=== PATIENT | male | born 1995 | race Asian ===

== ENCOUNTER 2021-04-15 21:51 | Emergency (ER) | payer OTHER, SELFPAY ==
[~2021-04-15] VITALS: Ht 180.3 cm; Wt 84.8 kg
[~2021-04-15 21:51] MED LIST: NITR100C7 PO
[2021-04-15 22:10] VITALS: BP 138/101
--- NOTE | 2021-04-15 22:13 | NUR ---
PATIENT AMBUALTED TO BATHROOM TO PROVIDE UA SAMPLE.
--- NOTE | 2021-04-15 22:14 | NUR ---
PATIENT AMBULATED TO LOBBY WITH STEADY GAIT TO AWAIT FOR CALL BACK.
[2021-04-15 22:29] LABS: APPEARANCE,URINE CLEAR (CLEAR); BILIRUBIN,URINE NEGATIVE (NEGATIVE); BLOOD, URINE 3+ (NEGATIVE); COLOR,URINE YELLOW (YELLOW); LEUKOCYTE ESTERASE ,URINE NEGATIVE (NEGATIVE); NITRITE, URINE NEGATIVE (NEGATIVE); PH,URINE 5.5 (5.0-9.0); UGLUCOSE NEGATIVE (NEGATIVE)
--- NOTE | 2021-04-15 22:33 | NUR ---
AMBULTED TO ER BED 11
--- NOTE | 2021-04-15 22:41 | NUR ---
26 Y/O MALE CAME TO THE ED FOR LLQ ABDOMINAL PAIN. PT STATES 10/10 SHARP PAIN IN THE LLQ ABDOMEN THAT RADIATES TO LEFT LOWER BACK. DENIES N/V/D; SKIN IS PINK/WARM/DRY; AAOX4 WITH EVEN AND STEADY GAIT; LUNGS CLEAR BL; HR EVEN AND REGULAR; PT DENIES ANY FEVER, CP, SOB, OR COUGH AT THIS TIME; VSS; PATIENT POSITIONED FOR COMFORT; HOB ELEVATED; BEDRAILS UP X2; BED DOWN. ER MD MADE AWARE OF PT STATUS. NKA PMH: KIDNEY STONES
[2021-04-15] MEDS ORDERED: KETOROLAC 15 MG/ML VIAL IVP ONE (22:50)
[2021-04-15] MEDS ORDERED: ONDANSETRON 4 MG/2 ML VIAL IVP ONE (22:50)
[2021-04-15] MEDS ORDERED: TAMSULOSIN 0.4 MG CAP PO SCH (22:55)
[2021-04-15 23:27] LABS: BASOPHILS # (AUTO) 0.1 K/uL (0.00-0.22); BASOPHILS % (AUTO) 0.7 % (0.0-2.0); EOSINOPHILS # (AUTO) 0.3 K/uL (0-0.4); EOSINOPHILS % (AUTO) 2.3 % (0.0-4.0); HEMATOCRIT 42.8 % (36-52); HEMOGLOBIN 14.1 g/dL (12.0-18.0); LYMPHOCYTES # (AUTO) 1.6 K/uL (2.0-11.5); MEAN CORPUSCULAR HEMOGLOBIN 28 pg (27-31); MEAN CORPUSCULAR HGB CONC 33 g/dL (33-37); MEAN CORPUSCULAR VOLUME 85.4 fL (80-94); MONOCYTES # (AUTO) 1.4 K/uL (0.8-1.0); NEUTROPHILS # (AUTO) 10.2 K/uL (1.8-7.7); PLATELET COUNT (AUTO) 324 K/uL (140-450); RED BLOOD CELL COUNT(AUTO) 5.01 MIL/uL (4.20-6.10); RED CELL DISTRIBUTION WIDTH 13.5 % (11.6-13.7); WHITE BLOOD COUNT (AUTO) 13.6 K/uL (4.8-10.8)
[2021-04-15] MEDS: NACL 0.9% 1,000 ML IV SCH (23:34)
[2021-04-15 23:41] LABS: RBC,URINE 11-20 (MOD) /HPF (0-5); WBC,URINE 0-5 /HPF (0-5)
--- NOTE | 2021-04-15 23:41 | NUR ---
US AT BEDSIDE.
[2021-04-15 23:58] LABS: ALBUMIN 4.5 g/dL (3.4-5.0); ANION GAP 14.2 (8-16); CARBON DIOXIDE 25.3 mmol/L (21-32); CREATININE 1.5 mg/dL (0.6-1.3); POTASSIUM 3.5 mmol/L (3.5-5.1); TOTAL BILIRUBIN 0.7 mg/dL (0.0-1.0)
[2021-04-16] MEDS ORDERED: HYDROcodone/APAP 10/325 MG 1 TAB TAB PO ONE (01:00)
[2021-04-16] MEDS: NACL 0.9% 1,000 ML IV SCH (01:09)
[2021-04-16] MEDS ORDERED: HYDROcodone/APAP 10/325 MG 1 TAB TAB PO SCH (01:10)
[2021-04-16] MEDS ORDERED: IBUP-2213 PO (01:12)
[2021-04-16] MEDS ORDERED: ONDA-24 PO (01:12)
[2021-04-16] MEDS ORDERED: ACET-8386 PO (01:12)
[2021-04-16] MEDS ORDERED: TAMS0.4C96 PO (01:12)
--- NOTE | 2021-04-16 01:40 | NUR ---
IV removed, catheter intact and site benign. Applied folded 4x4 gauze and tape to stop bleeding.
[2021-04-16 01:45] VITALS: BP 142/80
--- NOTE | 2021-04-16 01:45 | NUR ---
Patient discharged with v/s stable. Written and verbal after care instructions given and explained. Patient alert, oriented and verbalized understanding of instructions. Ambulatory with steady gait. All questions addressed prior to discharge. ID band removed. Patient advised to follow up with PMD. Rx of HYDROCODONE/ACETOMINAPHEN, IBUPROFEN, ZOFRAN, FLOMAX given. Patient educated on indication of medication including possible reaction and side effects. Opportunity to ask questions provided and answered.
== END 2021-04-16 01:45 | disposition home or self-care (01) ==
LOC: MED 21:51
DX: N20.0 Calculus of kidney (principal); R11.2 Nausea with vomiting, unspecified; Z87.442 Personal history of urinary calculi
CPT/HCPCS: 36415; 76770; 80053; 81001; 83690; 85025; 96361; 96374; 96375; 99284; J1885; J2405; J7030